=== PATIENT | male | born 1960 | race Caucasian/White ===

== ENCOUNTER 2017-06-16 12:32 | Emergency (ER) | payer BC, OTHER ==
[~2017-06-16] VITALS: Ht 182.9 cm; Wt 100.0 kg
[2017-06-16 12:33] VITALS: BP 142/84; PULSE 53; RESP 16; TEMP 98.4; O2SAT 98
[2017-06-16 12:47] VITALS: BP 104/57; PULSE 55; RESP 18; O2SAT 98
[2017-06-16 12:50] VITALS: RESP 18; O2SAT 99
[2017-06-16] MEDS ORDERED: ASPIRIN 81 MG CHEW TAB PO ONE (13:00)
[2017-06-16] MEDS ORDERED: SODIUM CHLORIDE 0.9% FLUSH 10 ML FLUSH IVF PRN (13:00)
[2017-06-16 13:12] LABS: AUTOMATED NEUTROPHIL # 4.5 TH/MM3 (1.8-7.7); BASOPHIL # 0.1 TH/MM3 (0-0.2); BASOPHIL % 0.7 % (0.0-2.0); EOSINOPHIL # 0.2 TH/MM3 (0-0.4); HEMATOCRIT 40.2 % (39.0-51.0); LYMPH % 33.5 % (9.0-44.0); LYMPHOCYTE # 2.7 TH/MM3 (1.0-4.8); MEAN CELL VOLUME 89.9 FL (80.0-100.0); MEAN CORPUSCULAR HEMOGLOBIN 31.3 PG (27.0-34.0); MEAN CORPUSCULAR HGB CONC 34.8 % (32.0-36.0); MEAN PLATELET VOLUME 7.2 FL (7.0-11.0); MONOCYTE # 0.5 TH/MM3 (0-0.9); NEUT % 56.8 % (16.0-70.0); PLATELET COUNT 240 TH/MM3 (150-450); RED BLOOD COUNT 4.47 MIL/MM3 (4.50-5.90); RED CELL DISTRIBUTION WIDTH 13.5 % (11.6-17.2)
[2017-06-16 13:22] LABS: PROTHROMBIN TIME - PATIENT 10.4 SEC (9.8-11.6)
--- NOTE | 2017-06-16 13:25 | PD ---
HPI . Chest pain Chief Complaint: Chest Pain Time Seen by Provider: 12:43 Travel History International Travel<30 days: No Contact w/Intl Traveler<30days: No Traveled to known affect area: No History of Present Illness HPI Patient presents from an urgent care center for the evaluation of chest pain. Onset was 2 weeks ago. It comes and goes. He describes a throbbing sensation which she rates 6/10. Saturating breathing. It is associated with dizziness and fatigue. He was seen at the urgent care center and had a normal EKG. He was sent to us for a more extensive evaluation and they can do at urgent care. He has no cardiac risk factors. PFSH Past Medical History Tetanus Vaccination: Unknown Past Surgical History Appendectomy: Yes Social History Alcohol Use: No Tobacco Use: No Allergies-Medications (Allergen,Severity, Reaction): Coded Allergies: No Known Allergies (Unverified , 06/16/17) Reported Meds & Prescriptions Reported Meds & Active Scripts Active No Active Prescriptions or Reported Medications Review of Systems Except as stated in HPI: all other systems reviewed are Neg General / Constitutional: Positive: Other (fatigue) HENT: Positive: Lightheadedness Cardiovascular: Positive: Chest Pain or Discomfort Physical Exam Narrative GENERAL: Patient looks well. He ambulated to the room from triage. SKIN: warm/dry. Good color. HEAD: Normocephalic. Atraumatic. EYES: Pupils equal and round. No scleral icterus. No injection or drainage. ENT: No nasal bleeding or discharge. Mucous membranes pink and moist. NECK: Trachea midline. Full range of motion without pain.. CARDIOVASCULAR: Regular rate and rhythm. Heart sounds are normal. RESPIRATORY: No accessory muscle use. Clear to auscultation. Breath sounds equal bilaterally. Chest wall is nontender to palpation. GASTROINTESTINAL: Abdomen soft. Nontender. Bowel sounds present. Nondistended. MUSCULOSKELETAL: No obvious deformities. NEUROLOGICAL: Awake and alert. No obvious cranial nerve deficits. Motor grossly within normal limits. Normal speech. PSYCHIATRIC: Appropriate mood and affect; insight and judgment normal. Data Data Last Documented VS Vital Signs Date Time Temp Pulse Resp B/P (MAP) Pulse Ox O2 Delivery O2 Flow Rate FiO2 06/16/17 12:50 18 99 Room Air 06/16/17 12:47 60 06/16/17 12:33 98.4 Orders Orders Electrocardiogram (06/16/17 12:46) Basic Metabolic Panel (Bmp) (06/16/17 12:46) Complete Blood Count With Diff (06/16/17 12:46) Magnesium (Mg) (06/16/17 12:46) Prothrombin Time / Inr (Pt) (06/16/17 12:46) Act Partial Throm Time (Ptt) (06/16/17 12:46) Troponin I (06/16/17 12:46) Ecg Monitoring (06/16/17 12:46) Bilateral Bp Monitoring (06/16/17 12:46) Iv Access Insert/Monitor (06/16/17 12:46) Oximetry (06/16/17 12:46) Aspirin Chew (Aspirin Chew) (06/16/17 13:00) Sodium Chloride 0.9% Flush (Ns Flush) (06/16/17 13:00) Ct Pulmonary Angiogram (06/16/17 12:46) Iohexol 350 Inj (Omnipaque 350 Inj) (06/16/17 15:07) Labs Laboratory Tests Test 06/16/17 12:55 White Blood Count 8.0 TH/MM3 Red Blood Count 4.47 MIL/MM3 Hemoglobin 14.0 GM/DL Hematocrit 40.2 % Mean Corpuscular Volume 89.9 FL Mean Corpuscular Hemoglobin 31.3 PG Mean Corpuscular Hemoglobin Concent 34.8 % Red Cell Distribution Width 13.5 % Platelet Count 240 TH/MM3 Mean Platelet Volume 7.2 FL Neutrophils (%) (Auto) 56.8 % Lymphocytes (%) (Auto) 33.5 % Monocytes (%) (Auto) 6.0 % Eosinophils (%) (Auto) 3.0 % Basophils (%) (Auto) 0.7 % Neutrophils # (Auto) 4.5 TH/MM3 Lymphocytes # (Auto) 2.7 TH/MM3 Monocytes # (Auto) 0.5 TH/MM3 Eosinophils # (Auto) 0.2 TH/MM3 Basophils # (Auto) 0.1 TH/MM3 CBC Comment DIFF FINAL Differential Comment Prothrombin Time 10.4 SEC Prothromb Time International Ratio 1.0 RATIO Activated Partial Thromboplast Time 23.5 SEC Blood Urea Nitrogen 14 MG/DL Creatinine 0.91 MG/DL Random Glucose 92 MG/DL Calcium Level 8.7 MG/DL Magnesium Level 2.1 MG/DL Sodium Level 141 MEQ/L Potassium Level 3.7 MEQ/L Chloride Level 108 MEQ/L Carbon Dioxide Level 28.4 MEQ/L Anion Gap 5 MEQ/L Estimat Glomerular Filtration Rate 86 ML/MIN Troponin I LESS THAN 0.02 NG/ML MDM Medical Decision Making Medical Screen Exam Complete: Yes Emergency Medical Condition: Yes Interpretation(s) EKG shows a sinus bradycardia at 48. No acute ischemic change. Differential Diagnosis Differential diagnosis of chest pain includes but is not limited to musculoskeletal pain, pulmonary embolism, acute coronary syndrome, pneumonia, pleurisy Narrative Course This patient presents with intermittent, throbbing chest pain for the last 2 weeks. Pain is exacerbated by breathing. The patient looks well. I have ordered a CT for PE. He has been given an aspirin. Cardiac workup is pending. CBC & BMP Diagram 06/16/17 12:55 Calcium Level 8.7, Magnesium Level 2.1 trop < 0.02 Coags are normal Last Impressions CT Angiography 06/16/17 1246 Signed Impressions: Service Date/Time: Friday, June 16, 2017 14:59 - CONCLUSION: 1. No acute infiltrate or pulmonary embolus to explain current clinical symptoms. 2. Cholelithiasis. 3. Severe degenerative changes in both shoulders. Venu Jane MD I have not uncovered an etiology for this patient's chest pain. But, he has had the chest pain for 2 weeks. Therefore, an acute problem was not suspected. He'll be discharged to home to follow up with primary care. Diagnosis Primary Impression: Chest pain Qualified Codes: R07.9 - Chest pain, unspecified Referrals: Primary Care Physician Patient Instructions: General Instructions Scripts No Active Prescriptions or Reported Meds Disposition: 01 DISCHARGE HOME Condition: Stable Ashley Mancuso MD Jun 16, 2017 13:25
[2017-06-16 13:33] LABS: BICARBONATE 28.4 MEQ/L (21.0-32.0); BLOOD UREA NITROGEN 14 MG/DL (7-18); CALCIUM 8.7 MG/DL (8.5-10.1); CHLORIDE 108 MEQ/L (98-107); CREATININE 0.91 MG/DL (0.60-1.30); GLOMERULAR FILTRATION RATE 86 ML/MIN (>89); GLUCOSE,RANDOM 92 MG/DL (74-106); MAGNESIUM 2.1 MG/DL (1.5-2.5); SODIUM (NA) 141 MEQ/L (136-145)
[2017-06-16 13:37] LABS: TROPONIN I LESS THAN 0.02 NG/ML (0.02-0.05)
[2017-06-16] MEDS ORDERED: IOHEXOL 350 MG/ML 10 ML VIAL (for RAD DIAG) IVCONTRAST ONE (15:07)
--- NOTE | 2017-06-16 15:25 | RADRPT ---
EXAM DATE/TIME: 06/16/2017 14:59 [facility] COMPARISON: No previous studies available for comparison. INDICATIONS : Chest pain for two weeks. IV CONTRAST: 75 cc Omnipaque 350 (iohexol) IV RADIATION DOSE: 23.40 CTDIvol (mGy) MEDICAL HISTORY : None SURGICAL HISTORY : Appendectomy. ENCOUNTER: Initial ACUITY: 1 day PAIN SCALE: 4/10 LOCATION: chest TECHNIQUE: Volumetric scanning of the chest was performed using a pulmonary embolism protocol MIP images were re constructed. Using automated exposure control and adjustment of the mA and/or kV according to patien t size, radiation dose was kept as low as reasonably achievable to obtain optimal diagnostic quality images. DICOM format image data is available electronically for review and comparison. Follow-up recommendations for detected pulmonary nodules are based at a minimum on nodule size and pa tient risk factors according to Fleischner Society Guidelines. FINDINGS: PULMONARY ARTERIES: No filling defects are seen in the pulmonary arteries through the segmental level. LUNGS: There is no consolidation or pneumothorax . No concerning pulmonary nodule is visualized. PLEURAE: There is no pleural thickening or pleural effusion. MEDIASTINUM: There is good visualization of the great vessels of the middle mediastinum. No evidence of mediastin al or hilar adenopathy/mass. MUSCULOSKELETAL: Within normal limits for patient age. MISCELLANEOUS: The visualized upper abdominal organs demonstrate no acute abnormality. Gallstones in the gallbladder neck. 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 Degenerative spurring of the dorsal spi ne. CONCLUSION: 1. No acute infiltrate or pulmonary embolus to explain current clinical symptoms. 2. Cholelithiasis. 3. Severe degenerative changes in both shoulders. Venu Jane MD on June 16, 2017 at 15:20 Board Certified Radiologist. This report was verified electronically.
--- NOTE | 2017-06-17 12:29 | EKG ---
Date Performed: 06/16/2017 Time Performed: 12:49:54 PTAGE: 57 years EKG: SINUS BRADYCARDIA BORDERLINE ECG NO PREVIOUS TRACING DOCTOR: Darrius Forde Interpretating Date/Time 06/17/2017 12:27:28
== END 2017-06-16 16:21 | disposition home or self-care (01) ==
LOC: NEPE 12:32
DX: R07.9 Chest pain, unspecified (principal); R42 Dizziness and giddiness
CPT/HCPCS: 71275; 80048; 83735; 84484; 85025; 85610; 85730; 93005; 99285; Q9967